=== PATIENT | male | born 1945 | race Caucasian/White ===

== ENCOUNTER 2019-11-28 11:38 | Emergency (ER) | payer OTHER ==
[~2019-11-28] VITALS: Ht 193 cm; Wt 143.8 kg
[2019-11-28 12:03] LABS: BASOPHILS ABSOLUTE AUTO 0.02 K/mm3 (0.00-0.23); BASOPHILS PERCENT AUTO 0 % (0-2); EOSINOPHILS ABSOLUTE AUTO 0.02 K/mm3 (0.00-0.68); EOSINOPHILS PERCENT AUTO 0 % (0-6); Hematocrit 28.2 % (37.0-53.0); IMMATURE GRAN ABSOLUTE AUTO 0.06 K/mm3 (0.00-0.10); IMMATURE GRAN PERCENT AUTO 1 % (0-1); LYMPHOCYTES ABSOLUTE AUTO 0.17 K/mm3 (0.84-5.20); LYMPHOCYTES PERCENT AUTO 1 % (21-46); MONOCYTES ABSOLUTE AUTO 0.47 K/mm3 (0.16-1.47); MONOCYTES PERCENT AUTO 4 % (4-13); Mean Corpuscular HGB 30.8 pg (26.0-34.0); Mean Corpuscular HGB Conc 31.9 g/dL (31.5-36.5); Mean Corpuscular Volume 97 fL (80-100); Mean Platelet Volume 10.8 fL (9.1-12.4); NEUTROPHILS ABSOLUTE AUTO 11.78 K/mm3 (1.96-9.15); NEUTROPHILS PERCENT AUTO 94 % (41-73); Platelet Count 193 K/mm3 (150-400); RDW Coefficient Variation 12.4 % (11.7-14.2); RDW Standard Deviation 43.5 fL (35.1-46.3); Red Blood Cell Count 2.92 M/mm3 (4.30-5.90); White Blood Cell Count 12.52 K/mm3 (4.00-11.30)
[2019-11-28 12:20] LABS: Albumin, Blood 2.9 g/dL (3.4-5.0); Albumin/Globulin Ratio 0.8 (0.8-1.8); Bilirubin, Total 0.3 mg/dL (0.1-1.0); Bun/Creatinine Ratio 20.4 (12.0-20.0); Calcium, Blood 9.7 mg/dL (8.5-10.1); Creatinine, Blood 4.57 mg/dL (0.60-1.20); Globulin, Blood 3.8 g/dL (2.2-4.0); Potassium, Blood 4.3 mmol/L (3.5-5.5); Total Protein, Blood 6.7 g/dL (6.4-8.2)
[2019-11-28 12:55] LABS: Source, Urine Voided
[2019-11-28 12:57] LABS: Bilirubin, Urine Neg (Neg); Blood, Urine 1+ (Neg); Glucose Qualitative, Urine Neg (Neg); Ketones, Urine Neg (Neg); Leukocyte Esterase, Urine Neg (Neg); Nitrite, Urine Neg (Neg); Protein, Urine 3+ (Neg); Urobilinogen, Urine NORM (Normal)
[2019-11-28 13:02] LABS: Magnesium, Blood 2.3 mg/dL (1.6-2.4); Phosphorus, Blood 6.7 mg/dL (2.5-4.9)
[2019-11-28 13:07] LABS: Appearance, Urine Clear (Clear); Color, Urine Yellow (P-Yellow)
[2019-11-28 13:09] LABS: Bacteria Rare /hpf; Squamous Epithelial Cells Rare /hpf (Few); White Blood Cells, Urine 0-2 /hpf (0-5)
[2019-11-28] MEDS ORDERED: SODBIC650 PO (13:45)
[2019-11-28] MEDS ORDERED: ALPR.5 PO (13:46)
[2019-11-28] MEDS ORDERED: METO25 PO ×2 (13:46)
[2019-11-28] MEDS ORDERED: AMLO10 PO (13:47)
[2019-11-28] MEDS ORDERED: SENN187 PO (13:48)
[2019-11-28] MEDS ORDERED: FISH OIL 1,001000 M1 PO (13:48)
[2019-11-28] MEDS ORDERED: CALC.25 PO (13:49)
[2019-11-28] MEDS ORDERED: LANTUS SOL100 UNIT/1 SC (13:49)
[2019-11-28] MEDS ORDERED: TERA5 PO ×2 (13:50→13:51)
[2019-11-28] MEDS ORDERED: GLIP10 PO (13:50)
[2019-11-28] MEDS ORDERED: DOC250 PO (13:51)
[2019-11-28] MEDS ORDERED: HYDRA50 PO (13:52)
[2019-11-28] MEDS ORDERED: Pravachol40 MG PO (13:53)
[2019-11-28] MEDS ORDERED: Vitamin D2000 UNIT PO (13:53)
[2019-11-28] MEDS ORDERED: FURO80 PO (13:53)
[2019-11-28] MEDS ORDERED: CLONIDINE1 EAC3 TD (13:55)
[2019-11-28] MEDS ORDERED: Aspir 8181 MG PO (14:05)
[2019-11-28] MEDS ORDERED: Daily Multiple1 EACH PO (14:05)
[2019-11-28] MEDS ORDERED: MELATONIN3 M3 PO (14:06)
[2019-11-28] MEDS ORDERED: GLUCOSAMINE MSM PO (14:07)
== END 2019-11-28 15:22 | disposition home or self-care (01) ==
LOC: ER 11:38
PROVIDERS: Emergency Medicine
DX: G45.9 Transient cerebral ischemic attack, unspecified (principal); N17.9 Acute kidney failure, unspecified; N18.9 Chronic kidney disease, unspecified; R00.1 Bradycardia, unspecified; E86.0 Dehydration; T50.905A Adverse effect of unspecified drugs, medicaments and biological substances, initial encounter; Z88.0 Allergy status to penicillin; Z79.899 Other long term (current) drug therapy; Z79.4 Long term (current) use of insulin; Z79.82 Long term (current) use of aspirin
CPT/HCPCS: 51702; 70450; 71045; 80053; 81001; 83735; 84100; 85025; 93005; 93010; 96360-59; 96361-59; 99285-25; J7030

== ENCOUNTER 2020-04-15 02:09 | Day surgery (SDC) | payer OTHER ==
[~2020-04-15 02:09] MED LIST: ALPR.5 PO; AMLO10 PO; Aspir 8181 MG PO; CALC.25 PO; CLONIDINE1 EAC3 TD; DOC250 PO; Daily Multiple1 EACH PO; FISH OIL 1,001000 M1 PO; FURO80 PO; GLIP10 PO; GLUCOSAMINE MSM PO; HYDRA50 PO; LANTUS SOL100 UNIT/1 SC; MELATONIN3 M3 PO; METO25 PO; Pravachol40 MG PO; SENN187 PO; SODBIC650 PO; TERA5 PO; Vitamin D2000 UNIT PO
== END 2020-04-15 11:00 | disposition home or self-care (01) ==
LOC: ATC 02:09
DX: Z45.2 Encounter for adjustment and management of vascular access device (principal); D63.1 Anemia in chronic kidney disease; Z79.4 Long term (current) use of insulin; Z79.82 Long term (current) use of aspirin; Z79.899 Other long term (current) drug therapy; Z88.0 Allergy status to penicillin
CPT/HCPCS: 36569; 71045; C1751